=== PATIENT | male | born 1930 | race Hispanic/Latino ===

== ENCOUNTER 2020-11-28 10:41 | Day surgery (SDC) | payer MEDICARE ==
[2020-11-28] MEDS ORDERED: [UNRECOGNIZED DRUG - OTHER] IR NR (11:16)
[2020-11-28 11:55] LABS: Basophils % (Auto) 0.3 % (0.0-1.8); Eosinophils # (Auto) 0.1 K/mm3 (0.0-0.4); Eosinophils % (Auto) 1.9 % (0.0-4.3); Lymphocytes # (Auto) 0.8 K/mm3 (1.2-5.4); Lymphocytes % (Auto) 11.9 % (13.4-35.0); Mean Corpuscular HGB Conc 34 % (32-34); Mean Corpuscular Volume 93 fl (84-94); Monocytes # (Auto) 0.4 K/mm3 (0.0-0.8); Monocytes % (Auto) 5.7 % (0.0-7.3); Platelet Count 191 K/mm3 (140-440); Red Blood Count 4.07 M/mm3 (3.65-5.03); Red Cell Distribution Width 14.4 % (13.2-15.2)
[2020-11-28] MEDS ORDERED: ceFAZolin/Water 2 GM/20 ML 2 GM/20 ML SYRINGE IV NR (12:00)
[2020-11-28 12:09] LABS: BUN/Creatinine Ratio 16; Blood Urea Nitrogen 14 mg/dL (9-20); Calcium 9.2 mg/dL (8.4-10.2); Hemolysis Index 2
[2020-11-28 12:14] LABS: INR 1.24 (0.87-1.13)
[2020-11-28 12:15] LABS: Partial Thromboplastin Time 30.7 Sec. (24.2-36.6)
--- NOTE | 2020-11-28 12:26 | Short Stay Summary ---
Short Stay Documentation Date of service: 11/28/20 - History Principal diagnosis: PPM in situ H&P: obtained from office Past Medical History: atrial fib, diabetes, hypertension, seizures, other (PEARL, h/o MS) Past Surgical History: PTCA, Other (pacemaker) Social history: alcohol abuse (occasional), no smoking - Allergies and Medications Current Medications: Allergies lisinopril Allergy (Unverified 11/28/20 10:45) SEVERE COUGH Active Medications Cefazolin Sodium (Ancef/Sterile Water 2 Gm/20 Ml) 2 gm in 20 mls @ 80 mls/hr IV PREOP NR; Protocol Stop: 11/28/20 20:00 - Physical exam General appearance: no acute distress Integumentary: no rash HEENT: Atraumatic Lungs: Clear to auscultation Heart: Normal S1, Normal S2, No murmurs Gastrointestinal: normal Extremities: No edema, normal temperature, normal color Neurological: Normal speech, Normal tone, Sensation intact - Brief post op/procedure progress note Date of procedure: 11/28/20 Pre-op diagnosis: PPM in situ Post-op diagnosis: same Surgeon: KALE WEATHERS Estimated blood loss: none Pathology: none Condition: stable - Hospital course Hospital course: Pt with existing PPM presented on 11/28/20 for elective exchange of dual-chamber PPM. S/p successful generator change. Pt tolerated procedure well. Currently stable with no complaints. - Disposition Condition at discharge: Good Disposition: DC-01 TO HOME OR SELFCARE - Discharge Diagnoses (1) S/P cardiac pacemaker procedure Status: Chronic Short Stay Discharge Plan Activity: other (as directed on post-implant education sheet provided at bedside) Diet: low cholesterol, low salt, diabetic Wound: per your surgeon's advice Special Instructions: other (Follow-up for incision check within 7-10 days) Follow up with: AVIVA SEXTON MD [Primary Care Provider] - 7 Days ATIYA BONE MD [Staff Physician] - 14 Days
[2020-11-28] MEDS ORDERED: HYDROmorphone 1 MG/1 ML INJ ONE (12:33)
[2020-11-28] MEDS ORDERED: LIDOCAINE MPF (2%) 20 MG/1 ML VIAL 5 ML ONE (12:33)
[2020-11-28] MEDS ORDERED: ONDANSETRON 4 MG/2 ML INJ ONE (12:33)
[2020-11-28] MEDS ORDERED: KETAMINE/STERILE WATER 50 MG/ML SYRINGE ONE (12:34)
[2020-11-28] MEDS ORDERED: propofoL 200 MG/20 ML VIAL IV ONE ×3 (12:34)
[2020-11-28] MEDS ORDERED: SODIUM CHLORIDE IRRI 500 ML 500 ML IR ONE (12:59)
[2020-11-28] MEDS ORDERED: SODIUM CHLORIDE 0.9% 1000 ML 1,000 ML ONE ×2 (13:04)
[2020-11-28] MEDS ORDERED: SODIUM CHLORIDE IRRI 1000 ML 1,000 ML, .VANCOMYCIN VIAL 1,000 MG IR ONE (13:20)
--- NOTE | 2020-11-28 13:24 | Anesthesia Consultation ---
Anesthesia Consult and Med Hx Date of service: 11/28/20 - Airway Anesthetic Teeth Evaluation: Dentures ROM Head & Neck: Adequate Mental/Hyoid Distance: Adequate Mallampati Class: Class III Intubation Access Assessment: Possibly Difficult - Pre-Operative Health Status ASA Pre-Surgery Classification: ASA3 Proposed Anesthetic Plan: MAC - Pulmonary Hx Smoking: No Hx Respiratory Symptoms: No Hx Sleep Apnea: Yes (+ CPAP) - Cardiovascular System Hx Hypertension: Yes Hx Heart Attack/AMI: Yes (2003) Hx Percutaneous Transluminal Coronary Angioplasty (PTCA): Yes (2003) Hx Cardia Arrhythmia: Yes (a-fib, last dose coumadin 11/23/20) Hx Pacemaker: Yes - Central Nervous System CVA: No - Endocrine Hx Renal Disease: No Hx Liver Disease: No Hx Non-Insulin Dependent Diabetes: Yes Hx Thyroid Disease: No - Other Systems Hx Obesity: Yes (BMI 33)
--- NOTE | 2020-11-28 13:24 | Anesthesia Day of Surgery ---
Anesthesia Day of Surgery - Day of Surgery Patient Examined: Yes Patient H&P Reviewed: Yes Patient is NPO: Yes
[2020-11-28] MEDS: BUPIVACAINE/PF (0.5%) 5 MG/1 ML 30 ML VIAL INFILTRATI ONE ×2 (13:49→13:53)
[2020-11-28] MEDS: ceFAZolin/Water 2 GM/20 ML 2 GM/20 ML SYRINGE IV ONE ×2 (13:50→13:52)
[2020-11-28] MEDS: LIDOCAINE (1%) 10 MG/1 ML VIAL 20 ML MDV ONE ×2 (13:51→13:53)
[2020-11-28] MEDS ORDERED: .VANCOMYCIN VIAL 1,000 MG in SODIUM CHLORIDE IRRI 1000 ML 1,000 ML IRRIGATION ONE (14:09)
--- NOTE | 2020-11-28 17:03 | Post Anesthesia Evaluation ---
- Post Anesthesia Evaluation Patient Participated: Yes Airway Patent: Yes Stable Respiratory Function: Yes Nausea/Vomiting: No Temp > 96.8F: Yes Pain Manageable: Yes Adequeate Hydration: Yes Anesthesia Complications: No
[2020-11-28 17:59] VITALS: BP 154/76
--- NOTE | 2020-11-29 10:52 | Electrophysiological Studies ---
DATE OF SERVICE: 11/28/2020 ELECTROPHYSIOLOGY PROCEDURE PROCEDURE: Dual chamber permanent pacemaker generator change out. PREPROCEDURE DIAGNOSIS: Permanent pacemaker at end of life. DESCRIPTION OF PROCEDURE: The patient was brought to the cath lab technologist. The patient was prepped and draped in the usual sterile fashion. Local anesthesia was obtained with lidocaine. Antibiotics were given prior to the procedure for surgical prophylaxis. A 3-cm incision was made near the old incision. The fibrous capsule was incised and the old device was removed from the pocket. The leads were inspected and had intact insulation and conductors. Pacing thresholds and electrograms were satisfactory. The pocket was irrigated with antibiotic containing solution. Adequate electrical parameters were confirmed prior to the attachment of the pacemaker pulse generator to the leads. The leads and generator were then inserted into the pocket. Closure was obtained using 2-0 Vicryl, 3-0 Vicryl and 4-0 Vicryl for a subcuticular closure. This incision was then protected with Steri-Strips, gauze and clear adhesive dressing was applied. COMPLICATIONS: None. ASSESSMENT: Successful dual-chamber permanent pacemaker replacement. PLAN: The patient should follow up in 8-10 days for an incision check. TID: [id number] RECEIPT: [id number] BERONICAW/CARLOS/RICHARDSON
--- NOTE | 2020-11-29 14:42 | Electrocardiograph Report ---
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
== END 2020-11-28 10:42 | disposition home or self-care (01) ==
LOC: CATHLABREC 10:41
PROVIDERS: ATTEND Internal Medicine Cardiovascular Disease
DX: Z45.010 Encounter for checking and testing of cardiac pacemaker pulse generator [battery] (principal); I42.9 Cardiomyopathy, unspecified; I48.91 Unspecified atrial fibrillation; E78.00 Pure hypercholesterolemia, unspecified; I10 Essential (primary) hypertension; G47.30 Sleep apnea, unspecified; K21.9 Gastro-esophageal reflux disease without esophagitis; E66.9 Obesity, unspecified; E11.9 Type 2 diabetes mellitus without complications; Z72.89 Other problems related to lifestyle; Z88.8 Allergy status to other drugs, medicaments and biological substances; Z79.899 Other long term (current) drug therapy; Z79.01 Long term (current) use of anticoagulants; Z79.84 Long term (current) use of oral hypoglycemic drugs; Z68.33 Body mass index [BMI] 33.0-33.9, adult
CPT/HCPCS: 33228; 36415; 80048; 82962; 85025; 85610; 85730; 93005; C1785; J0690; J1170; J2405; J2704; J3370; J3490; J7030